=== PATIENT | male | born 1980 | race Caucasian/White ===

== ENCOUNTER → 2017-12-13 13:44 | Outpatient (CLI) | payer OTHER, SELFPAY ==
[2017-12-13 15:02] LABS: Hematocrit 42.4 % (40-54); Hemoglobin 13.9 g/dl (13.0-16.5); Mean Corp Hgb Conc 32.8 g/gl (32-36); Mean Corpuscular Hgb 31.4 pg (27.0-32.0); Mean Corpuscular Volume 95.9 fL (80-94); Mean Platelet Vol. 11.1 fl (6.2-12.0); Platelet Count 177 K/mm3 (150-450); RBC Distribution Width CV 12.7 % (11.6-14.6); RBC Distribution Width SD 44.1 fl (35.1-43.9); Red Blood Count 4.42 M/mm3 (4.6-6.2); Scan Indicated on CBC? Y/N NO
[2017-12-13 15:24] LABS: Albumin, Serum 3.5 g/dL (3.2-5.0); BUN 11 mg/dL (7-18); BUN/Creat Ratio 11.3 RATIO (10-20); Calcium,Total 8.9 mg/dL (8.5-10.1); Chloride 108 mmol/L (98-107); Creatinine, Serum 0.97 mg/dL (0.70-1.30); EST Glomerular Filtration Rate 93 mL/min (>60); Est Glom Filt Rate - Afr Amer 112 mL/min (>60); Glucose 92 mg/dL (74-106); Potassium 3.9 mmol/L (3.5-5.1); Sodium Level 141 mmol/L (136-145)
[2017-12-13 15:28] LABS: Protein, Urine (Random) 215.6 mg/dL (<11.9); Protein:Creat Ratio 1246 mg/g CRE (0-200)
[2017-12-13 15:34] LABS: Vitamin D,25 Hydroxy 41.6 ng/mL (29.95-100.01)
== END ==
PROVIDERS: Family Provider Family Medicine; PCP Family Medicine; Visit Provider Internal Medicine Nephrology
DX: E55.9 Vitamin D deficiency, unspecified (principal); N18.1 Chronic kidney disease, stage 1; D63.1 Anemia in chronic kidney disease; N05.1 Unspecified nephritic syndrome with focal and segmental glomerular lesions
CPT/HCPCS: 36415; 80069; 82306; 82570; 83735; 84156; 85027

== ENCOUNTER → 2018-08-08 15:44 | Outpatient (CLI) | payer OTHER, SELFPAY ==
[2018-08-08 16:56] LABS: Hematocrit 43.9 % (40-54); Mean Corp Hgb Conc 34.2 g/gl (32-36); Mean Corpuscular Hgb 32.2 pg (27.0-32.0); Mean Corpuscular Volume 94.2 fL (80-94); Mean Platelet Vol. 11.1 fl (6.2-12.0); Platelet Count 162 K/mm3 (150-450); RBC Distribution Width CV 12.4 % (11.6-14.6); RBC Distribution Width SD 42.2 fl (35.1-43.9); Red Blood Count 4.66 M/mm3 (4.6-6.2); White Blood Count 7.8 K/mm3 (4.4-11.0)
[2018-08-08 17:02] LABS: Protein, Urine (Random) 121.7 mg/dL (<11.9); Protein:Creat Ratio 1452 mg/g CRE (0-200)
[2018-08-08 17:03] LABS: Scan Indicated on CBC? Y/N NO
[2018-08-08 17:23] LABS: Albumin, Serum 3.7 g/dL (3.2-5.0); BUN 12 mg/dL (7-18); Calcium,Total 8.9 mg/dL (8.5-10.1); Chloride 105 mmol/L (98-107); EST Glomerular Filtration Rate 90 mL/min (>60); Est Glom Filt Rate - Afr Amer 109 mL/min (>60); Glucose 95 mg/dL (74-106); Magnesium 1.8 mg/dL (1.6-2.6); Phosphorus 2.7 mg/dL (2.5-4.9); Potassium 4.4 mmol/L (3.5-5.1); Sodium Level 138 mmol/L (136-145)
[2018-08-08 17:32] LABS: PTHIN 80.8 pg/mL (18.4-80.1); Vitamin D,25 Hydroxy 30.5 ng/mL (29.95-100.01)
== END ==
PROVIDERS: Family Provider Family Medicine; PCP Family Medicine; Referring Provider Internal Medicine Nephrology; Visit Provider Internal Medicine Nephrology
DX: E55.9 Vitamin D deficiency, unspecified (principal); N18.1 Chronic kidney disease, stage 1; D63.1 Anemia in chronic kidney disease
CPT/HCPCS: 36415; 80069; 82306; 82570; 83735; 83970; 84156; 85027

== ENCOUNTER → 2019-02-06 | Outpatient (CLI) | payer OTHER, SELFPAY ==
[2019-02-06 14:33] LABS: Hematocrit 42.6 % (40-54); Hemoglobin 14.5 g/dl (13.0-16.5); Mean Corpuscular Hgb 31.6 pg (27.0-32.0); Mean Corpuscular Volume 92.8 fL (80-94); Mean Platelet Vol. 10.8 fl (6.2-12.0); Platelet Count 152 K/mm3 (150-450); RBC Distribution Width CV 12.7 % (11.6-14.6); RBC Distribution Width SD 42.8 fl (35.1-43.9); Red Blood Count 4.59 M/mm3 (4.6-6.2); White Blood Count 8.8 K/mm3 (4.4-11.0)
[2019-02-06 14:34] LABS: Scan Indicated on CBC? Y/N NO
[2019-02-06 14:49] LABS: Protein, Urine (Random) 246.9 mg/dL (<11.9); Protein:Creat Ratio 1815 mg/g CRE (0-200)
[2019-02-06 15:11] LABS: PTHIN 70.6 pg/mL (18.4-80.1); Vitamin D,25 Hydroxy 16.6 ng/mL (29.95-100.01)
[2019-02-06 15:18] LABS: Albumin, Serum 3.5 g/dL (3.2-5.0); BUN 16 mg/dL (7-18); BUN/Creat Ratio 17.3 RATIO (10-20); Calcium,Total 8.9 mg/dL (8.5-10.1); Chloride 108 mmol/L (98-107); Creatinine, Serum 0.93 mg/dL (0.70-1.30); EST Glomerular Filtration Rate 97 mL/min (>60); Est Glom Filt Rate - Afr Amer 118 mL/min (>60); Glucose 106 mg/dL (74-106); Magnesium 1.7 mg/dL (1.6-2.6); Phosphorus 2.8 mg/dL (2.5-4.9); Potassium 3.9 mmol/L (3.5-5.1); Sodium Level 139 mmol/L (136-145)
[2019-02-07 10:04] LABS: Microalbumin:Creatinine Ratio 1470.6 mg/g CRE (<30 mg/g CRE)
== END | disposition home or self-care (01) ==
LOC: LAB 13:34
PROVIDERS: Referring Provider Internal Medicine Nephrology; Visit Provider Internal Medicine Nephrology
DX: N18.1 Chronic kidney disease, stage 1 (principal); D63.1 Anemia in chronic kidney disease; E55.9 Vitamin D deficiency, unspecified
CPT/HCPCS: 36415; 80069; 82043; 82306; 82570; 83735; 83970; 84156; 85027

== ENCOUNTER → 2019-10-23 13:48 | Outpatient (CLI) | payer OTHER, SELFPAY ==
[2019-09-19 11:11] VITALS: BMI 39.8
[2019-10-23 14:55] LABS: Albumin, Serum 3.5 g/dL (3.2-5.0); BUN 11 mg/dL (7-18); BUN/Creat Ratio 10.4 RATIO (10-20); Calcium,Total 9.2 mg/dL (8.5-10.1); Chloride 108 mmol/L (98-107); Creatinine, Serum 1.06 mg/dL (0.70-1.30); EST Glomerular Filtration Rate 83 mL/min (>60); Est Glom Filt Rate - Afr Amer 100 mL/min (>60); Glucose 87 mg/dL (74-106); Phosphorus 2.3 mg/dL (2.5-4.9); Potassium 4.2 mmol/L (3.5-5.1); Sodium Level 140 mmol/L (136-145)
[2019-10-23 15:04] LABS: Vitamin D,25 Hydroxy 31.3 ng/mL (29.95-100.01)
[2019-10-23 15:05] LABS: Color, Urine Yellow (Yellow); Glucose, Dipstick Normal (Normal); Ketone-Dipstick 5 mg/dl (Negative); Leukocyte Esterase-Dipstick Negative /ul (Negative); Nitrite-Dipstick Negative (Negative); Occult Blood-Urine 25 /ul (Negative); Protein-Dipstick 500 mg/dl (Negative); Urine Bilirubin Dipstick Negative (Negative); Urine Clarity Sl. Cloudy (Clear); Urine Urobilinogen Normal (Normal)
[2019-10-23 15:40] LABS: Protein, Urine (Random) 301.5 mg/dL (<11.9); Protein:Creat Ratio 1838 mg/g CRE (0-200)
== END ==
PROVIDERS: Referring Provider Internal Medicine Nephrology; Visit Provider Internal Medicine Nephrology
DX: N18.1 Chronic kidney disease, stage 1 (principal); E55.9 Vitamin D deficiency, unspecified
CPT/HCPCS: 36415; 80069; 81002; 82043; 82306; 82570; 84156